=== PATIENT | female | born 1990 | race Caucasian/White ===

== ENCOUNTER → 2016-12-07 09:46 | Outpatient (CLI) | payer OTHER ==
[2011-02-06 05:42] VITALS: BMI 29.6
== END | disposition home or self-care (01) ==
LOC: D.RAD 09:46
DX: Z02.71 Encounter for disability determination (principal)

== ENCOUNTER 2017-05-20 15:17 | Emergency (ER) | payer MEDICAID ==
[2011-02-06 05:42] VITALS: BMI 29.6
== END 2017-05-20 16:51 | disposition home or self-care (01) ==
LOC: D.ER 15:17
DX: M79.601 Pain in right arm (principal); F17.200 Nicotine dependence, unspecified, uncomplicated